=== PATIENT | male | born 1955 | race Caucasian/White ===

== ENCOUNTER 2018-03-31 10:00 | Inpatient (IN) | payer MEDICARE ==
[~2018-03-31] VITALS: Ht 175.3 cm; Wt 129.5 kg
--- NOTE | ~2018-03-31 | MORECARE ---
CASE MANAGEMENT DISCHARGE SUMMARY PATIENT: CATIA POOLE UNIT: [id number] ADM DATE: 03/31/18 AGE: 62 : 57 SEX: M ROOM/BED: D.2107 AUTHOR: BRUNILDA,DOC PHYSICIAN: REFERRING PHYSICIAN: BRIGHT QUESADA MD DATE OF SERVICE: 04/05/18 Discharge Plan Patient Name: CATIA POOLE Facility: [facility]:[place] : 1955 Planned Disposition: Home Anticipated Discharge Date: 04/05/18 Discharge Date: Expected LOS: 5 Initial Reviewer: [email or web address] Initial Review Date: 04/04/2018 Generated: 04/05/18 9:16 am Comments DCP- Discharge Planning Updated by [email or web address]: Rafy Phillips on 04/04/18 2:[address] Patient Name: CATIA POOLE Admission Status: ER Accout number: [id number] Admission Date: 03-31-2018 : 1955 Admission Diagnosis:CHRONIC PULMONARY EDEMA Attending: BRIGHT QUESADA Current LOS: 4 Anticipated DC Date: 04-04-2018 Planned Disposition: Home Primary Insurance: MEDICARE A & B Discharge Planning Comments: CM RECEIVED OXYGEN TESTING, PT QUALIFIES FOR HOME OXYGEN. CM MET WITH PT IN ROOM TO DISCUSS DISCHARGE PLANNING AND NEEDS. PT REPORTS LIVING AT HOME INDEPENDENTLY AND ALONE. PT'S ADULT SON IS "IN AND OUT" OF THE HOME BUT DOES NOT REALLY LIVE THERE. PT HAS CRUTCHES THAT HE USES OCCAISIONALLY. PT HAS NO MEDICAL EQUIPMENT PROVIDER PREFERENCE AND NO OUTSIDE SERVICES ASSISTING IN THE HOME. CM DISCUSSED AVAILABILITY OF HOME HEALTH, REHAB SERVICES AND MEDICAL EQUIPMENT. PT UNDERSTANDS HE WILL HAVE COPAY FOR OXYGEN AND HAS NO PREFERENCE ON PROVIDER. PT REPORTS HIS SON WILL PICK HIM UP FOR DISCHARGE HOME. PT THINKS HE WILL GO HOME LATER TODAY. IMPORTANT MESSAGE FROM MEDICARE PROVIDED AND EXPLAINED. CM RECEIVED OXYGEN ORDER, CALLED [facility], , SPOKE TO PRICILLA AND PROVIDED REFERRAL INFORMATION. CM FAXED REFERRAL TO [facility], . PRICILLA ADVISED THEY WILL DELIVER PORTABLE OXYGEN TO HOSPITAL TODAY AND WILL ARRANGE HOME OXYGEN WHEN PT ARRIVES AT HOME AFTER DISCHARGE. [facility] ARRANGING HOME AND PORTABLE OXYGEN. PT DENIES FURHTER DISCHARGE NEEDS, SON TO TRANSPORT HOME. CM TO FOLLOW AND ASSIST NEEDED. Gas Stove Servicer Helper: Rafy Phillips DCPIA - Discharge Planning Initial Assessment Updated by [email or web address]: Rafy Phillips on 04/04/18 2:37 pm * How many steps to enter\\exit or inside your home? * PCP DR. QUESADA * [facility]acy [facility] * Preadmission Environment Home Alone * ADLs Independent * Equipment Crutch * Other Equipment NO MEDICAL EQUIPMENT PROVIDER PREFERENCE * List name and contact numbers for known caregivers / representatives who currently or will assist patient after discharge: TATA POOLE, SON, * Verbal permission to speak to the caregivers and representatives has been obtained from the patient. N/A * Community resources currently utilized None * Please name any agencies selected above. NONE * Additional services required to return to the preadmission environment? Yes * Can the patient safely return to the preadmission environment? Yes * Has this patient been hospitalized within the prior 30 days at any hospital? No Coverage Notice Reviewer: [id number] - Rafy Phillips Notice Issued Date-Time: 04/04/2018 13:55 Notice Type: IM Discharge Notice Notice Delivered To: Patient Relationship to Patient: Numerical Control Machine Machinist Name: Delivery Method: HAND - Hand Delivered Tesha Days: Prior Verbal Notification: Recipient Understood Notice: Yes Recipient Signature: Yes Med Rec Note Co-signed by Attending: Coverage Notice Comment: Last DP export: 04/04/18 2:12 Patient Name: CATIA POOLE Page 75554 at 0816 All edits/amendments must be made on the electronic document DICTATION DATE: 04/05/18814 SUBSCRIPTION CREW LEADER: MAME 04/05/18814 RPT#: [id number] DC DATE: STATUS: ADM IN [facility] [address] [facility] [place] [address] END OF REPORT
--- NOTE | ~2018-03-31 | HP ---
PATIENT: CATIA POOLE MEDICAL RECORD: [id number] ACCOUNT: [id number] LOCATION:[facility].2106 : [birth year] ADMISSION DATE: 03/31/18 PCP: BRIGHT QUESADA MD HISTORY AND PHYSICAL EXAMINATION REASON FOR ADMISSION: Shortness of breath. HISTORY OF PRESENT ILLNESS: The patient is a 62-year-old male with metabolic syndrome and remote history of coronary artery disease, post-PTCA 4 years ago of LAD and circumflex. He has history of paroxysmal AFib/Aflutter, but has been in sinus rhythm most recently. He did see Dr. Alejandro within the last 2 months and had a stable EF of 45%. The patient states he had increasing shortness of breath and wheezing at night for the last 10 days. His son has heard him wheezing audibly at night. He denied chest pain, but notes he has had a gradual increase in weight; and on weighing today, he had gained 23 pounds over the last 2 weeks. He came to the office yesterday with edema in his left leg only and pain in his right foot. A chest x-ray showed early interstitial edema. I was concerned about DVT and/or PE and he was referred to the hospital for venous ultrasound. The patient left the office, did not go, and went back home. This morning, when he got up, he was more short of breath and called my nurse and we recommended EMS be called to bring him to the ER. He apparently drove himself in, and while there, chest x-ray confirmed pulmonary edema and elevated troponin. CTA of the chest and venous Doppler of the leg showed no evidence of DVT or PE. He has now been admitted for exacerbation of congestive heart failure. He denies chest pain. PAST MEDICAL HISTORY: CAD, [id number] PTCA in approximately 2013 of LAD and circumflex lesion; history of peripheral vascular disease with 70% left popliteal and 50% right SFA; hypothyroidism; hypertension; diabetes mellitus; hyperlipidemia; osteoarthritis; and history of gout. PAST SURGICAL HISTORY: PTCA as above. FAMILY HISTORY: Father at 67, he was alcoholic, had CAD and AL. Mother at 66, had arthritis. SOCIAL HISTORY: Nonsmoker and nondrinker. His son does live locally. He is and his is not involved in his healthcare. MEDICATIONS: Aspirin 81 mg a day, levothyroxine 225 mcg daily, losartan 100 mg a day, amlodipine 5 mg b.i.d., metformin 500 mg twice daily, Crestor 10 mg a day, sotalol 80 mg p.o. q. 12 hours, doxazosin 4 mg at bedtime, tizanidine 4 mg b.i.d. p.r.n. muscle spasm, Ventolin HFA inhaler one inhalation q. 4-6 hours p.r.n. shortness of breath, glipizide 2.5 mg daily, garlic 1000 mg capsule t.i.d., and tramadol 50 mg q. 6 p.r.n. severe pain. REVIEW OF SYSTEMS: GENERAL: He has been fatigued for the last couple of weeks. He has had a 23-pound weight gain, he states, over that period of time. HEENT: No recent visual change, sinus congestion, or sore throat. RESPIRATORY: Rest and exertional dyspnea for the last 2 weeks, worse in the last 3 days. Denies cough or hemoptysis. Denies sputum production. CARDIAC: No recent palpitations. Positive for PND. Positive for edema in both lower extremities, left much greater than right. GASTROINTESTINAL: No nausea, vomiting, change in stools, or blood per rectum. HISTORY AND PHYSICAL [id number] CTAIA POOLE GENITOURINARY: Nocturia once or twice nightly with slow stream. ENDOCRINE: Denies polyuria, polydipsia, heat or cold intolerance. NEUROLOGIC: No history of stroke, TIA, or vascular headaches. INTEGUMENT: No rash or itching. PSYCHIATRIC: Denies depressed mood. PHYSICAL EXAMINATION: VITAL SIGNS: Temperature 98.3. Weight 297 pounds and height 5 feet 9 inches. Respiratory rate is 24 and blood pressure 141/87 with sat of 96% on 3.5 liters. HEENT: Normocephalic. Eyes are clear. NECK: No bruits or masses. CHEST: He has crackles in the bases bilaterally. He reports expiratory wheezes in the upper lobes. HEART: Regular rate without MGR. PMI appropriate. ABDOMEN: Morbidly obese and nontender. No organomegaly or bruits noted. EXTREMITIES: He has 3+ edema in the left lower extremity from the knee down and some tenderness over the left first metatarsal. Right lower extremity is 2+ edematous. Homans sign is negative. NEUROLOGIC: Oriented to person, place, and time. Cranial nerves are grossly intact. Gait was not tested due to dyspnea. LABORATORY DATA: Lab shows white count of 8700 with H&H of 15.4 and 42.7, neutrophils 85.7, lymphocytes 4.8, and platelet count 195,000. Sodium is 130, potassium 4.4, CO2 is 30.9, anion gap is 8, BUN and creatinine are normal at 17 and 1.0, glucose 189 nonfasting, and calcium is 9. Liver functions are normal. CPK-MB is elevated at 4.3 with troponin 0.017. ProBNP is 483. ABG; pH 7.317 with pCO2 of 59 and pCO2 of 80 on 3 liters. DIAGNOSTIC DATA: Chest x-ray shows fluid overload and cardiomegaly. Venous Doppler shows no evidence of DVT in lower extremities. Pulmonary CTA showed no central filling defects in the main or subsegmental pulmonary arteries. Enlargement of the main pulmonary trunk, suggesting possible pulmonary hypertension. Cardiomegaly and changes of CAD noted. No adenopathy. Small bilateral pleural effusions. EKG; currently I cannot locate but was reportedly normal. ASSESSMENT: 1. Congestive heart failure. 2. Respiratory failure with hypoxemia secondary to #1. 3. Obesity. 4. Metabolic syndrome. 5. Pulmonary hypertension. 6. Probable obstructive sleep apnea. 7. Morbid obesity. PLAN: The patient will be admitted for serial cardiac enzymes, IV Lasix, echocardiogram, and cardiology consult. TRANSINT:[id number] Voice Confirmation ID: [id number] DOCUMENT ID: [id number] HISTORY AND PHYSICAL [id number] CATIA POOLE TIMOTHY MD at 0910 CC: [id number] DICTATION DATE: 03/31/181757 HOUSEKEEPING LAUNDRY WORKER: 03/31/18 1904 ADM IN [facility] [address] [place] [address]
--- NOTE | ~2018-03-31 | MORECARE ---
CASE MANAGEMENT DISCHARGE SUMMARY PATIENT: CATIA POOLE UNIT: [id number] ADM DATE: 03/31/18 AGE: 62 : 57 SEX: M ROOM/BED: D.2108 AUTHOR: KOBY WORLEY PHYSICIAN: REFERRING PHYSICIAN: BRIGHT QUESADA MD DATE OF SERVICE: 04/06/18 Discharge Plan Patient Name: CATIA POOLE Facility: [facility]:[place] : 1955 Planned Disposition: Home Anticipated Discharge Date: 04/05/18 Discharge Date: 04/05/2018 Expected LOS: 5 Initial Reviewer: [email or web address] Initial Review Date: 04/04/2018 Generated: 04/06/18 8:35 am Comments DCP- Discharge Planning Updated by [email or web address]: Rafy Phillips on 04/04/18 2:[address] Patient Name: CATIA POOLE Admission Status: ER Accout number: [id number] Admission Date: 03-31-2018 : 1955 Admission Diagnosis:CHRONIC PULMONARY EDEMA Attending: BRIGHT QUESADA Current LOS: 4 Anticipated DC Date: 04-04-2018 Planned Disposition: Home Primary Insurance: MEDICARE A & B Discharge Planning Comments: CM RECEIVED OXYGEN TESTING, PT QUALIFIES FOR HOME OXYGEN. CM MET WITH PT IN ROOM TO DISCUSS DISCHARGE PLANNING AND NEEDS. PT REPORTS LIVING AT HOME INDEPENDENTLY AND ALONE. PT'S ADULT SON IS "IN AND OUT" OF THE HOME BUT DOES NOT REALLY LIVE THERE. PT HAS CRUTCHES THAT HE USES OCCAISIONALLY. PT HAS NO MEDICAL EQUIPMENT PROVIDER PREFERENCE AND NO OUTSIDE SERVICES ASSISTING IN THE HOME. CM DISCUSSED AVAILABILITY OF HOME HEALTH, REHAB SERVICES AND MEDICAL EQUIPMENT. PT UNDERSTANDS HE WILL HAVE COPAY FOR OXYGEN AND HAS NO PREFERENCE ON PROVIDER. PT REPORTS HIS SON WILL PICK HIM UP FOR DISCHARGE HOME. PT THINKS HE WILL GO HOME LATER TODAY. IMPORTANT MESSAGE FROM MEDICARE PROVIDED AND EXPLAINED. CM RECEIVED OXYGEN ORDER, CALLED [facility], , SPOKE TO PRICILLA AND PROVIDED REFERRAL INFORMATION. CM FAXED REFERRAL TO [facility], . PRICILLA ADVISED THEY WILL DELIVER PORTABLE OXYGEN TO HOSPITAL TODAY AND WILL ARRANGE HOME OXYGEN WHEN PT ARRIVES AT HOME AFTER DISCHARGE. [facility] ARRANGING HOME AND PORTABLE OXYGEN. PT DENIES FURHTER DISCHARGE NEEDS, SON TO TRANSPORT HOME. CM TO FOLLOW AND ASSIST NEEDED. Manager Market Research: Rafy Phillips DCPIA - Discharge Planning Initial Assessment Updated by [id number]: Rafy Phillips on 04/04/18 2:37 pm * How many steps to enter\\exit or inside your home? * PCP DR. QUESADA * Pharmacy [facility] * Preadmission Environment Home Alone * ADLs Independent * Equipment Crutch * Other Equipment NO MEDICAL EQUIPMENT PROVIDER PREFERENCE * List name and contact numbers for known caregivers / representatives who currently or will assist patient after discharge: TATA POOLE, SON, * Verbal permission to speak to the caregivers and representatives has been obtained from the patient. N/A * Community resources currently utilized None * Please name any agencies selected above. NONE * Additional services required to return to the preadmission environment? Yes * Can the patient safely return to the preadmission environment? Yes * Has this patient been hospitalized within the prior 30 days at any hospital? No Coverage Notice Reviewer: [id number] - Rafy Phillips Notice Issued Date-Time: 04/04/2018 13:55 Notice Type: IM Discharge Notice Notice Delivered To: Patient Relationship to Patient: Thread Winder Automatic Name: Delivery Method: HAND - Hand Delivered Tesha Days: Prior Verbal Notification: Recipient Understood Notice: Yes Recipient Signature: Yes Med Rec Note Co-signed by Attending: Coverage Notice Comment: Last DP export: 04/05/18 7:16 Patient Name: CATIA POOLE Page 23593 at 0735 All edits/amendments must be made on the electronic document DICTATION DATE: 04/06/18734 WILDLIFE PHOTOGRAPHER: MAME 04/06/18 0735 RPT#: [id number] DC DATE:04/05/18 STATUS: DIS IN [facility] [address] [place] [address] END OF REPORT
--- NOTE | ~2018-03-31 | EC ---
PATIENT:CATIA POOLE DATE OF SERVICE: 03/31/18 SEX: M MEDICAL RECORD: [id number] DATE OF : [birth year] LOCATION:D.M2 D.210 AGE OF PATIENT: 62 ADMISSION DATE: 03/31/18 REFERRING PHYSICIAN: INTERPRETING PHYSICIAN: NORM BERGER MD ECHOCARDIOGRAM REPORT ECHO CHARGES 4 ECHO COMPLETE Date: 03/31/18 CLINICAL DIAGNOSIS: PULMONARY HTN ECHOCARDIOGRAPHIC MEASUREMENTS (adult normal given) AC root (d.<3.7cm) 3.9 cm LV Septum d (<1.2 cm> 1.8 cm Valve Excursion 1.4 cm LV Septum (systole) 2.0 cm Left Atria (s.<4.0cm> 3.8 cm LVPW d(<1.2cm) 1.7 cm RV (d.<2.3cm) 3.4 cm LVPW (sytole) 1.9 cm LV diastole(<5.6CM) 5.1 cm MV E-F(>70mm/sec) cm LV systole 3.6 cm LVOT Diameter 2.0 cm MV exc.(>10mm) 1.8 cm Est.ejection fraction (50-75%) % DOPPLER: LVIT cm/sec A 58.0 cm/sec E 109 cm/sec LA cm/sec RVSP 18 mmHg LVOT 89 cm/sec AOP1/2T m/s Asc. Ao 128 cm/sec RVOT cm/sec RA cm/sec PA cm/sec AV Gradient Peak 6.51 mmHg AV Mean 3.56 mmHg AV Area 3.5 cm MV Gradient Peak 5.28 mmHg MV Mean 1.98 mmHg MV Area cm COMMENTS: Clay Molder: 2 SOFIA JAY Instructor Nurse: 3 Dr. Lan TAPE# PACS Pericardial Effusion N DATE OF SERVICE: Adequate 2D, color flow, spectral Doppler, and M-mode. LVH is present. LV internal dimensions are normal. Wall motion is normal. EF is greater than or equal to 55%. Aortic valve is sclerotic without evidence of stenosis by Doppler interrogation. Left atrium is normal at 3.8 cm. Mitral valve shows no prolapse. Mild MR. Right-sided chambers are grossly normal. Mild TR. RV systolic pressure estimated at 18 mmHg via the continuity equation. Incidental note is made of a large pleural effusion. ECHOCARDIOGRAM REPORT [id number] CATIA POOLE TRANSINT:[id number] Voice Confirmation ID: [id number] DOCUMENT ID: [id number] NORM BERGER MD at 1407 CC: [id number] DICTATION DATE: 03/31/181607 CARDIOLOGY TECH: 03/31/182008 ADM IN [facility] [address] [place] [id number]
--- NOTE | ~2018-03-31 | MORECARE ---
CASE MANAGEMENT DISCHARGE SUMMARY PATIENT: CATIA POOLE UNIT: [id number] ADM DATE: 03/31/18 AGE: 62 : 57 SEX: M ROOM/BED: D.2106 AUTHOR: KBOY WORLEY PHYSICIAN: REFERRING PHYSICIAN: BRIGHT QUESADA MD DATE OF SERVICE: 04/04/18 Discharge Plan Patient Name: CATIA POOLE [facility] [facility] 1955 Planned Disposition: Home Anticipated Discharge Date: 04/04/18 Discharge Date: Expected LOS: 4 Initial Reviewer: [email or web address] Initial Review Date: 04/04/2018 Generated: 04/04/18 3:36 pm Patient Name: CATIA POOLE Page 81276 at 1436 All edits/amendments must be made on the electronic document DICTATION DATE: 04/04/18 1435 SENIOR EXECUTIVE COMPENSATION ANALYST: MAME 04/04/18 1435 RPT#: [id number] DC DATE: STATUS: ADM IN [facility] [address] [place] [address] END OF REPORT
--- NOTE | ~2018-03-31 | MORECARE ---
CASE MANAGEMENT DISCHARGE SUMMARY PATIENT: CATIA POOLE UNIT: [id number] ADM DATE: 03/31/18 AGE: 62 : 57 SEX: M ROOM/BED: D.2106 AUTHOR: KOBY WORLEY PHYSICIAN: REFERRING PHYSICIAN: BRIGHT QUESADA MD DATE OF SERVICE: 04/04/18 Discharge Plan Patient Name: CATIA POOLE [facility] [facility] 1955 Planned Disposition: Home Anticipated Discharge Date: 04/04/18 Discharge Date: Expected LOS: 4 Initial Reviewer: [email or web address] Initial Review Date: 04/04/2018 Generated: 04/04/18 3:43 pm DCPIA - Discharge Planning Initial Assessment Updated by [email or web address]: Rafy Phillips on 04/04/18 2:37 pm * How many steps to enter\exit or inside your home? * PCP DR. QUESADA * [facility]acy [facility] * Preadmission Environment Home Alone * ADLs Independent * Equipment Crutch * Other Equipment NO MEDICAL EQUIPMENT PROVIDER PREFERENCE * List name and contact numbers for known caregivers / representatives who currently or will assist patient after discharge: TATA POOLE, SON, * Verbal permission to speak to the caregivers and representatives has been obtained from the patient. N/A * Community resources currently utilized None * Please name any agencies selected above. NONE * Additional services required to return to the preadmission environment? Yes * Can the patient safely return to the preadmission environment? Yes * Has this patient been hospitalized within the prior 30 days at any hospital? No External Providers External Provider: [facility] Patient-[place] Next Contact Date: 04/04/2018 Service Request Date: Service Type: Resolution: Reviewer: Comments: Last DP export: 04/04/18 1:36 Patient Name: CATIA POOLE Page [phone] at 1443 All edits/amendments must be made on the electronic document DICTATION DATE: 04/04/18 1443 DRIVING SCHOOL INSTRUCTOR: MAME 04/04/18 1443 RPT#: [id number] DC DATE: STATUS: ADM IN [facility] [address] [place] [address] END OF REPORT
--- NOTE | ~2018-03-31 | MORECARE ---
CASE MANAGEMENT DISCHARGE SUMMARY PATIENT: CATIA POOLE UNIT: [id number] ADM DATE: 03/31/18 AGE: 62 : 57 SEX: M ROOM/BED: D.2105 AUTHOR: BRUNILDA,DOC PHYSICIAN: REFERRING PHYSICIAN: BRIGHT QUESADA MD DATE OF SERVICE: 04/04/18 Discharge Plan Patient Name: CATIA POOLE Facility: [facility]:[place] : 1955 Planned Disposition: Home Anticipated Discharge Date: 04/04/18 Discharge Date: Expected LOS: 4 Initial Reviewer: [email or web address] Initial Review Date: 04/04/2018 Generated: 04/04/18 4:12 pm Comments DCP- Discharge Planning Updated by [email or web address]: Rafy Phillips on 04/04/18 2:[address] Patient Name: CATIA POOLE Admission Status: ER Accout number: [id number] Admission Date: 03-31-2018 : 1955 Admission Diagnosis:CHRONIC PULMONARY EDEMA Attending: BRIGHT QUESADA Current LOS: 4 Anticipated DC Date: 04-04-2018 Planned Disposition: Home Primary Insurance: MEDICARE A & B Discharge Planning Comments: CM RECEIVED OXYGEN TESTING, PT QUALIFIES FOR HOME OXYGEN. CM MET WITH PT IN ROOM TO DISCUSS DISCHARGE PLANNING AND NEEDS. PT REPORTS LIVING AT HOME INDEPENDENTLY AND ALONE. PT'S ADULT SON IS "IN AND OUT" OF THE HOME BUT DOES NOT REALLY LIVE THERE. PT HAS CRUTCHES THAT HE USES OCCAISIONALLY. PT HAS NO MEDICAL EQUIPMENT PROVIDER PREFERENCE AND NO OUTSIDE SERVICES ASSISTING IN THE HOME. CM DISCUSSED AVAILABILITY OF HOME HEALTH, REHAB SERVICES AND MEDICAL EQUIPMENT. PT UNDERSTANDS HE WILL HAVE COPAY FOR OXYGEN AND HAS NO PREFERENCE ON PROVIDER. PT REPORTS HIS SON WILL PICK HIM UP FOR DISCHARGE HOME. PT THINKS HE WILL GO HOME LATER TODAY. IMPORTANT MESSAGE FROM MEDICARE PROVIDED AND EXPLAINED. CM RECEIVED OXYGEN ORDER, CALLED [facility], , SPOKE TO PRICILLA AND PROVIDED REFERRAL INFORMATION. CM FAXED REFERRAL TO [facility], . PRICILLA ADVISED THEY WILL DELIVER PORTABLE OXYGEN TO HOSPITAL TODAY AND WILL ARRANGE HOME OXYGEN WHEN PT ARRIVES AT HOME AFTER DISCHARGE. [facility] ARRANGING HOME AND PORTABLE OXYGEN. PT DENIES FURHTER DISCHARGE NEEDS, SON TO TRANSPORT HOME. CM TO FOLLOW AND ASSIST NEEDED. Soup Person: Rafy Phillips DCPIA - Discharge Planning Initial Assessment Updated by [email or web address]: Rafy Phillips on 04/04/18 2:37 pm * How many steps to enter\\exit or inside your home? * PCP DR. QUESADA * Pharmacy [facility] * Preadmission Environment Home Alone * ADLs Independent * Equipment Crutch * Other Equipment NO MEDICAL EQUIPMENT PROVIDER PREFERENCE * List name and contact numbers for known caregivers / representatives who currently or will assist patient after discharge: TATA POOLE, SON, * Verbal permission to speak to the caregivers and representatives has been obtained from the patient. N/A * Community resources currently utilized None * Please name any agencies selected above. NONE * Additional services required to return to the preadmission environment? Yes * Can the patient safely return to the preadmission environment? Yes * Has this patient been hospitalized within the prior 30 days at any hospital? No Coverage Notice Reviewer: [email or web address] - Rafy Phillips Notice Issued Date-Time: 04/04/2018 13:55 Notice Type: IM Discharge Notice Notice Delivered To: Patient Relationship to Patient: Control Room Agent Name: Delivery Method: HAND - Hand Delivered Tehsa Days: Prior Verbal Notification: Recipient Understood Notice: Yes Recipient Signature: Yes Med Rec Note Co-signed by Attending: Coverage Notice Comment: Last DP export: 04/04/18 1:43 Patient Name: CATIA POOLE Page 16191 at 1512 All edits/amendments must be made on the electronic document DICTATION DATE: 04/04/181510 INTERN PRODUCT MARKETING MANAGER: MAME 04/04/181510 RPT#: [id number] DC DATE: STATUS: ADM IN [facility] [address] [place] [address] END OF REPORT
[~2018-03-31 10:00] MED LIST: BETAPACE 80 MG80 MG PO; COZAAR100 MG PO; ELIQUIS2.5 MG PO; GLUCOPHAGE500 MG PO; GLUCOTROL 5 MG T5 MG PO; NORVASC5 MG PO; PLAVIX75 MG PO; SYNTHROID200 MC1 PO
[2018-03-31 10:25] LABS: BASOPHILS 0.1 % (0-2); EOSINOPHILS 0.6 % (0-7); HEMATOCRIT 42.7 % (42.0-54.0); HEMOGLOBIN 15.4 g/dL (13.5-17.5); IMMATURE GRANULOCYTES 0.2 % (0-5); MCH 32.5 pg (26.0-34.0); MCHC 36.1 g/dL (31.0-37.0); MCV 90.1 fL (80.0-100.0); MEAN PLATELET VOLUME 10.9 fL (7.4-10.4); MONOCYTES 6.4 % (2-11); NEUTROPHILS 85.7 % (40-80); PLATELET COUNT 195 10x3/uL (130-400); RBC 4.74 10x6/uL (4.20-6.10); RDW 12.8 % (11.5-14.5); WBC 8.7 10x3/uL (4.8-10.8)
[2018-03-31 10:40] LABS: ALBUMIN 3.3 g/dL (3.4-5.0); ALKALINE PHOSPHATASE 82 U/L (46-116); ALT (SGPT) 40 U/L (10-68); BILIRUBIN - TOTAL 0.67 mg/dL (0.2-1.3); CALC OSMOLALITY 267 mosm/kg (275-300); CARBON DIOXIDE 30.9 mmol/L (21.0-32.0); CHLORIDE - SERUM 95 mmol/L (98-107); GLUCOSE 189 mg/dL (74-106); POTASSIUM - SERUM 4.4 mmol/L (3.5-5.1); PROTEIN - SERUM 7.5 g/dL (6.4-8.2); SODIUM 130 mmol/L (136-145); UREA NITROGEN 17 mg/dL (7-18); eGFR NON AFRICAN AMERICAN 81 mL/min (90-120)
[2018-03-31 10:54] LABS: CKMB 4.3 U/L (0.0-3.6); CREATINE KINASE 162 UL (21-232); PRO BNP 483 pg/mL (0-125); TROPONIN-I < 0.017 ng/mL (0.000-0.060)
[2018-03-31 11:12] LABS: INR 1.03 (0.85-1.17); PROTIME 13.2 SECONDS (11.6-15.0)
[2018-03-31 11:13] LABS: APTT 32.4 SECONDS (22.8-39.4)
[2018-03-31 11:14] LABS: D-DIMER-QUANTITATIVE 0.84 ug/mLFEU (0.20-0.54)
[2018-03-31] MEDS ORDERED: SYNTHROID25 MCG PO (15:15)
[2018-03-31 15:53] VITALS: BP 141/87
[2018-03-31 16:33] VITALS: BP 141/87; BMI 43.8
[2018-03-31 21:57] VITALS: BP 144/85
[2018-04-01 01:04] VITALS: BP 127/77
[2018-04-01 04:07] LABS: BASOPHILS 0.1 % (0-2); EOSINOPHILS 0.4 % (0-7); HEMATOCRIT 39.7 % (42.0-54.0); HEMOGLOBIN 13.8 g/dL (13.5-17.5); IMMATURE GRANULOCYTES 0.2 % (0-5); LYMPHOCYTES 7.1 % (15-50); MCH 31.7 pg (26.0-34.0); MCHC 34.8 g/dL (31.0-37.0); MCV 91.3 fL (80.0-100.0); MEAN PLATELET VOLUME 10.8 fL (7.4-10.4); MONOCYTES 9.5 % (2-11); NEUTROPHILS 82.7 % (40-80); PLATELET COUNT 199 10x3/uL (130-400); RBC 4.35 10x6/uL (4.20-6.10); RDW 12.9 % (11.5-14.5); WBC 9.6 10x3/uL (4.8-10.8)
[2018-04-01 04:49] LABS: CALCIUM 8.7 mg/dL (8.5-10.1); CARBON DIOXIDE 31.2 mmol/L (21.0-32.0); CHLORIDE - SERUM 96 mmol/L (98-107); CREATININE - SERUM 1.1 mg/dL (0.6-1.3); SODIUM 131 mmol/L (136-145); T4 THYROXIN - FREE 1.31 ng/dL (0.76-1.46); THYROID STIMULATING HORMONE 0.71 uIU/mL (0.36-3.74); eGFR NON AFRICAN AMERICAN 72 mL/min (90-120)
[2018-04-01 04:55] LABS: CALC OSMOLALITY 267 mosm/kg (275-300); GLUCOSE 112 mg/dL (74-106); TROPONIN-I < 0.017 ng/mL (0.000-0.060); UREA NITROGEN 23 mg/dL (7-18)
[2018-04-01 05:40] VITALS: BP 127/85
[2018-04-01 09:01] VITALS: BP 130/71
[2018-04-01 12:18] VITALS: BP 127/63
[2018-04-01 12:36] VITALS: Ht 175.3 cm; Wt 129.5 kg
[2018-04-01 16:06] VITALS: BP 133/70
[2018-04-01 20:12] VITALS: BP 133/82
[2018-04-02] VITALS (7 sets, daily range): BP systolic 129–153; BP diastolic 70–84
[2018-04-02 06:45] LABS: ANION GAP 7.8 mmol/L (8-16); CALCIUM 8.7 mg/dL (8.5-10.1); CARBON DIOXIDE 32.2 mmol/L (21.0-32.0); CREATININE - SERUM 1.1 mg/dL (0.6-1.3)
[2018-04-03 03:45] VITALS: BP 150/78
[2018-04-03 05:22] LABS: ANION GAP 3.3 mmol/L (8-16); CALCIUM 9.5 mg/dL (8.5-10.1); CARBON DIOXIDE 39.8 mmol/L (21.0-32.0); CREATININE - SERUM 1.2 mg/dL (0.6-1.3); POTASSIUM - SERUM 4.1 mmol/L (3.5-5.1)
[2018-04-03 10:05] VITALS: BP 132/73
[2018-04-03 13:23] VITALS: BP 153/72
[2018-04-03 19:07] VITALS: BP 146/86
[2018-04-03 20:30] VITALS: BP 156/78
[2018-04-04 02:08] VITALS: BP 154/79
[2018-04-04 04:30] VITALS: BP 143/72
[2018-04-04 06:11] LABS: ANION GAP 6.6 mmol/L (8-16); CALCIUM 9.3 mg/dL (8.5-10.1); CARBON DIOXIDE 39.2 mmol/L (21.0-32.0); CREATININE - SERUM 1.3 mg/dL (0.6-1.3); POTASSIUM - SERUM 3.8 mmol/L (3.5-5.1)
[2018-04-04 07:20] VITALS: BP 131/65
[2018-04-04 13:13] VITALS: BP 143/76
[2018-04-04 20:00] VITALS: BP 127/58
[2018-04-05 01:24] VITALS: BP 139/72
[2018-04-05 06:19] VITALS: BP 141/70
[2018-04-05] MEDS ORDERED: GLUCOTROL 5 MG T5 MG PO (07:52)
[2018-04-05] MEDS ORDERED: LASIX40 MG PO (07:53)
[2018-04-05] MEDS ORDERED: ALDACTONE25 MG PO (07:53)
[2018-04-05] MEDS ORDERED: FLUTICASONE PRO16 GM NASAL (07:54)
[2018-04-05 08:30] LABS: ANION GAP 7.8 mmol/L (8-16); CARBON DIOXIDE 39.4 mmol/L (21.0-32.0); POTASSIUM - SERUM 4.2 mmol/L (3.5-5.1)
[2018-04-05 09:59] VITALS: BP 139/85
== END 2018-04-05 13:10 | disposition home or self-care (01) | DRG 291 ==
LOC: D.ER 10:00 → D.EDHOLD 13:15 → OBSVTIME 13:15 → D.EDHOLD 13:15 → D.M2 14:10
PROVIDERS: Family Medicine
DX: I11.0 Hypertensive heart disease with heart failure (principal); J96.91 Respiratory failure, unspecified with hypoxia; I50.31 Acute diastolic (congestive) heart failure; Z68.41 Body mass index [BMI] 40.0-44.9, adult; E66.01 Morbid (severe) obesity due to excess calories; I25.10 Atherosclerotic heart disease of native coronary artery without angina pectoris; E11.51 Type 2 diabetes mellitus with diabetic peripheral angiopathy without gangrene; E78.5 Hyperlipidemia, unspecified; E03.9 Hypothyroidism, unspecified; M19.90 Unspecified osteoarthritis, unspecified site; Z95.5 Presence of coronary angioplasty implant and graft; E88.81 Metabolic syndrome and other insulin resistance